=== PATIENT | male | born 1985 | race Caucasian/White ===

== ENCOUNTER → 2016-03-22 | Outpatient (CLI) | payer OTHER ==
--- NOTE | 2016-03-24 11:16 | RAD ---
PROCEDURE MR of the right wrist HISTORY Right wrist pain due to repetitive activity. COMPARISON None TECHNIQUE Standard multiplanar sequences are obtained. FINDINGS There is mild motion degradation on the exam. Triangular fibrocartilage is intact. The alignment at the distal radioulnar joint is maintained. The wrist is in extreme supination. Extensor carpi ulnaris tendon appears intact. The extensor tendons are intact. Flexor tendons are intact. Median nerve unremarkable. No evidence of a bone lesion or acute fracture. No evidence of a scapholunate or lunotriquetral ligament tear. There is slight dorsal tilt of the lunate bone. No large joint effusion. IMPRESSION 1. No evidence of acute abnormality or internal derangement. 2. Note there is slight dorsal tilt of the lunate, uncertain significance. Electronically signed by: Pieter Avina MD (Mar 24, 2016 11:15:25)
== END | disposition home or self-care (01) ==
LOC: MRI 08:15
DX: S63.501A Unspecified sprain of right wrist, initial encounter (principal); X58.XXXA Exposure to other specified factors, initial encounter; Y93.89 Activity, other specified; Y92.89 Other specified places as the place of occurrence of the external cause; Y99.8 Other external cause status
CPT/HCPCS: 73221